=== PATIENT | female | born 1970 | race Caucasian/White ===

== ENCOUNTER → 2016-05-04 | Outpatient (CLI) | payer OTHER ==
[~2016-05-04] MED LIST: POLY17PO6 PO; SULF1TAB35 PO
--- NOTE | 2016-05-04 14:02 | Diagnostic Imaging Report ---
PROCEDURE: MR imaging of the brain without contrast. TECHNIQUE: Multiplanar, multisequence MR imaging of the brain was performed without contrast. INDICATION: Headaches. Vision changes. Prior head injury. COMPARISON: None. FINDINGS: Small air-fluid levels in the maxillary sinuses, left greater than right. Mild mucosal thickening in the ethmoid and left frontal sinus. No abnormal intracranial signal, enhancement, restricted water diffusion or hemosiderin disposition. Normal morphology including the midline structures, cerebellopontine angle, hippocampi and posterior fossa. No extra-axial fluid collections or hydrocephalus. Normal intracranial flow voids. The orbits are unremarkable. IMPRESSION: 1. Paranasal sinus disease including small air-fluid levels in the maxillary sinuses which would be compatible with acute sinusitis. 2. MRI of the brain is otherwise negative. Dictated by: Dictated on workstation # [id number]
== END ==
LOC: RAD 12:44
PROVIDERS: ATTEND Psychiatry & Neurology Neurology
DX: F07.81 Postconcussional syndrome (principal)
CPT/HCPCS: 70551

== ENCOUNTER 2016-06-28 09:03 | Outpatient (RCR) | payer OTHER ==
--- OUTSIDE RECORDS SUMMARY | 2016-04-02 08:17 | XMS REPORT | Continuity of Care Document ---
Author Author [facility] Organization [facility] Address Unknown Phone Unavailable Care Team Providers Care Drug Clerk Name Role Phone RubenCindy PCP [phone] Source Comments Some departments are not documenting in the electronic medical record. If you do not see the information that you expected, contact Release of Information in the Health Information Management department at [phone] for further assistance in locating additional records.[facility] Active Allergies and Adverse Reactions Allergen Noted Date Severity Reactions Comments Amoxicillin 11/24/2015 Low SEE COMMENTS "Gives a yeast infection" Asa 11/24/2015 Medium HIVES Latex 11/24/2015 Medium RASH Pcn 12/08/2015 Low UNKNOWN Current Medications Prescription Sig. Disp. Refills Start End Date Status Date cetirizine (ZYRTEC) 10 mg Take 10 mg by mouth every Active tablet morning. MULTIVITAMINS WITH Take 1 Tab by mouth Active FLUORIDE (MULTI-VITAMIN daily. PO) topiramate (TOPAMAX) 25 Take 1 Tab by mouth twice 60 Tab 5 03/01/20 Active mg tablet daily. 16 SUMAtriptan succinate Take 1 Tab by mouth every 9 Tab 5 03/01/20 Active (IMITREX) 25 mg tablet 2 hours as needed for 16 Migraine symptoms. Dose may be repeated in 2 hours if needed. Max of 8 tablets in 24 hours. Active Problems Problem Noted Date Post concussion syndrome 12/08/2015 Cervicalgia 12/08/2015 Vision disturbance 12/08/2015 Cognitive complaints 12/08/2015 Most Recent Encounters Date Type Specialty Providers Description 03/08/2016 [facility] Esau Hairston, Encounter PhD 03/05/2016 Telephone Neurology Raul Winston MD General Question 03/01/2016 Office Visit Neurology Raul Winston MD Post concussion syndrome (Primary Dx); Cervicalgia; Vision disturbance; Cognitive complaints Social History Tobacco Use Types Packs/Day Years Used Date Never Smoker Smokeless Tobacco: Never Used Alcohol Use Drinks/Week oz/Week Comments No Last Filed Vital Signs Vital Sign Reading Time Taken Blood Pressure 133/91 03/01/2016 1:26 PM CDT Pulse 64 03/01/2016 1:26 PM CDT Temperature - - Respiratory Rate - - Height 1.575 m (5' 2.01") 03/01/2016 1:26 PM CDT Weight 63.617 kg (140 lb 4 oz) 03/01/2016 1:26 PM CDT Body Mass Index 25.65 03/01/2016 1:26 PM CDT Oxygen Saturation - - Plan of Care Health Maintenance Due Date Last Done Comments Physical (Comprehensive) 09/20/1978 Exam Pertussis Vaccine 09/20/1982 Tetanus Vaccine 09/20/1988 Cervical Cancer Screening 09/20/1992 Influenza Vaccine 12/29/2015 Results from Last 3 Months Not on file
== END 2016-07-01 | disposition home or self-care (01) ==
PROVIDERS: ATTEND Psychiatry & Neurology Neurology
DX: F07.81 Postconcussional syndrome (principal)

== ENCOUNTER 2016-09-18 08:58 | Outpatient (RCR) | payer OTHER ==
--- OUTSIDE RECORDS SUMMARY | 2016-07-02 09:07 | XMS REPORT | Continuity of Care Document ---
Author Author [facility] Organization [facility] Address Unknown Phone Unavailable Care Team Providers Care Podiatrist Assistant Name Role Phone Cindy Miranda PCP [phone] Source Comments Some departments are not documenting in the electronic medical record. If you do not see the information that you expected, contact Release of Information in the Health Information Management department at [phone] for further assistance in locating additional records.[facility] Active Allergies and Adverse Reactions Allergen Noted [...] 5 03/01/20 Active mg tablet daily. 16 Active Problems Problem Noted Date Post concussion syndrome 12/08/2015 Cervicalgia 12/08/2015 Vision disturbance 12/08/2015 Cognitive complaints 12/08/2015 Most Recent Encounters Date Type Specialty Providers Description 05/17/2016 Ancillary Radiology Outpatient, Radiologist Diagnosis unknown Orders (Primary Dx) 05/16/2016 Office Visit Neurology Raul Winston MD Post concussion syndrome (Primary Dx); Cervicalgia; Cognitive complaints; Vision disturbance 05/11/2016 Ancillary Radiology Outpatient, Radiologist Diagnosis unknown Orders (Primary Dx) 05/04/2016 Hospital Radiology Encounter 04/24/2016 Documentation Neurology Raul Winston MD 04/11/2016 Telephone Neurology Raul Winston MD Imaging Social History Tobacco Use Types Packs/Day Years Used Date Never Smoker Smokeless Tobacco: Never Used Alcohol Use Drinks/Week oz/Week Comments No Last Filed Vital Signs Vital Sign Reading Time Taken Blood Pressure 119/82 05/16/2016 1:27 PM [employer] Pulse 88 05/16/2016 1:27 PM [employer] Temperature - - Respiratory Rate - - Height 1.575 m (5' 2.01") 05/16/2016 1:27 PM [employer] Weight 59.421 kg (131 lb) 05/16/2016 1:27 PM [employer] Body Mass Index 23.95 05/16/2016 1:27 PM [employer] Oxygen Saturation - - Plan of Care Date Type Specialty Providers Description 07/25/2016 Appointment Neurology Raul Winston MD [address] [place] [address] [phone] (Fax) Health Maintenance Due Date Last Done Comments Physical (Comprehensive) 09/20/1978 Exam Pertussis Vaccine 09/20/1982 Tetanus Vaccine 09/20/1988 Cervical Cancer Screening 09/20/1992 Breast Cancer Screening 2011 Influenza Vaccine 12/29/2015 Results from Last 3 Months MRI HEAD EXTERNAL IMAGING (05/04/2016) Narrative This order has been auto finalized and does not contain a result.
== END 2016-09-30 | disposition home or self-care (01) ==
PROVIDERS: ATTEND Psychiatry & Neurology Neurology
DX: F07.81 Postconcussional syndrome (principal)

== ENCOUNTER 2016-10-03 09:16 | Outpatient (RCR) | payer OTHER | END 2016-12-03 15:24 | disposition home or self-care (01) | PROVIDERS: ATTEND Psychiatry & Neurology Neurology | DX: F07.81 Postconcussional syndrome (principal) ==